=== PATIENT | male | born 1950 | race Caucasian/White ===

== ENCOUNTER 2017-07-05 07:27 | Emergency (ER) | payer OTHER ==
--- NOTE | 2017-07-05 07:32 | EDPHY ---
H & P Time Seen by Provider: 07/05/17 07:30 HPI/ROS: CHIEF COMPLAINT: Left flank pain secondary to a fall HISTORY OF PRESENT ILLNESS: The patient is a 66 y/o male arriving via EMS complaining of left flank pain secondary to a fall this morning. 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 He is having a constant pain with a severity of 5/10. He is also complaining of left elbow pain and left-sided abdominal pain that is radiating from his flank. He did not hit his head; no head or neck pain. Denies chest pain, shortness of breath, paresthesias or other pertinent symptoms. REVIEW OF SYSTEMS: Aside from elements discussed in the HPI, a comprehensive 10-point review of systems was reviewed and is negative. Past Medical/Surgical History: Denies Social History: Works for [employer], lives in [place], non-smoker. Physical Exam: General Appearance: Alert, pleasant Eyes: Pupils equal and round, no conjunctival injection ENT, Mouth: Mucous membranes moist, no facial derrick tenderness Neck: NT, FROM without pain Respiratory: Lungs are clear to auscultation Cardiovascular: Regular rate and rhythm Back: Erythema, swelling, and tenderness over the left flank Gastrointestinal: Ventral hernia. LUQ tenderness. Abdomen is soft. Neurological: A&O, nonfocal, normal gait Skin: 1 cm v-shaped laceration on left elbow Extremities: Full ROM of left elbow without pain, no other extremity pain/ swelling Psychiatric: Mood and affect normal Constitutional: Initial Vital Signs Temperature (C) 36.5 C 07/05/17 07:37 Heart Rate 60 07/05/17 07:37 Respiratory Rate 18 07/05/17 07:37 Blood Pressure 151/100 H 07/05/17 07:37 O2 Sat (%) 95 07/05/17 07:37 O2 Delivery Mode Room Air O2 (L/minute) 2 Allergies/Adverse Reactions: No Known Allergies Allergy (Unverified 07/05/17 07:42) Home Medications: Medication Instructions Recorded Hydrocodone/APAP 5/325 [Crowheart 1 - 2 tab PO Q4H PRN #10 tab 07/05/17 5/325] IBUPROFEN 07/05/17 Medical Decision Making - Diagnostics Imaging Results: Imaging Impressions Abdomen CT 07/05/17 07:39 Impression: 1. Minimally comminuted posterior left 11th and 12th rib fractures. 2. Bibasilar atelectasis. No pneumothorax or hemothorax. 3. No solid organ or bowel injury. Specifically, no splenic or left renal injury. 4. No free fluid or lumbar spine or pelvic fracture. Findings discussed with Emergency Department physician, Lizbet Lagunas, on July 05, 2017 at 9:26 a.m. Imaging: Discussed imaging studies w/ projection printer Radiologist, I viewed and interpreted images myself Procedures: The 1cm v-shaped laceration on the left elbow was anesthetized using lidocaine. The wound was irrigated, draped and explored to its base with a gloved finger. There were no deep structures involved. No foreign body palpable. The wound was repaired with 4-0 Ethilon. The wound repair was simple with 2 stitches. ED Course/Re-evaluation: The patient is a 66 y/o male arriving via EMS presenting with erythema, swelling , and tenderness his the left flank secondary to falling off of a loading dock at work. He also has a 1cm v-shaped laceration on his left elbow. 0805: The patients platelets are at 1120 0806: Reassessed patient and discussed platelet count. Will f/u with PCP. I also performed a laceration repair on his left elbow. 0922: Spoke with radiologist, he reports the patient has 2 rib fractures. 0923: Reassessed patient and discussed imaging findings. Physical exam unchanged. 15mg IV Toradol administered for left flank pain. He will need a follow up with a primary care provider regarding his thrombocytosis. Return precautions provided; patient is comfortable with this plan. Differential Diagnosis: Differential diagnosis includes though it is not limited to fracture, intracranial hemorrhage, pneumothorax, hemothorax, intra-abdominal hemorrhage. - Data Points Laboratory Results: Laboratory Results 07/05/17 07:51 07/05/17 07:51 07/05/17 07/05/17 07/05/17 07:51 07:51 07:38 WBC 9.70 10^3/uL H 10^3/uL (3.80-9.50) RBC 5.05 10^6/uL 10^6/uL (4.40-6.38) Hgb 16.1 g/dL g/dL (13.7-17.5) POC Hgb 17.3 gm/dL gm/dL (13.7-17.5) Hct 47.8 % % (40.0-51.0) POC Hct 51 % % (40-51) MCV 94.7 fL fL (81.5-99.8) MCH 31.9 pg pg (27.9-34.1) MCHC 33.7 g/dL g/dL (32.4-36.7) RDW 12.6 % % (11.5-15.2) Plt Count 1120 10^3/uL H* 10^3/uL (150-400) MPV 9.4 fL fL (8.7-11.7) Neut % (Auto) 58.4 % % (39.3-74.2) Lymph % (Auto) 28.0 % % (15.0-45.0) Lares % (Auto) 8.0 % % (4.5-13.0) Eos % (Auto) 3.6 % % (0.6-7.6) Baso % (Auto) 1.3 % % (0.3-1.7) Nucleat RBC Rel Count 0.0 % % (0.0-0.2) Absolute Neuts (auto) 5.65 10^3/uL 10^3/uL (1.70-6.50) Absolute Lymphs (auto) 2.72 10^3/uL 10^3/uL (1.00-3.00) Absolute Monos (auto) 0.78 10^3/uL 10^3/uL (0.30-0.80) Absolute Eos (auto) 0.35 10^3/uL 10^3/uL (0.03-0.40) Absolute Basos (auto) 0.13 10^3/uL H 10^3/uL (0.02-0.10) Absolute Nucleated RBC 0.00 10^3/uL 10^3/uL (0-0.01) Immature Gran % 0.7 % % (0.0-1.1) Immature Gran # 0.07 10^3/uL 10^3/uL (0.00-0.10) Platelet Estimate INCREASED H (ADEQ) Smear Review By Pending POC Sodium 139 mEq/L mEq/L (134-144) Sodium 137 mEq/L mEq/L (134-144) POC Potassium 4.1 mEq/L mEq/L (3.3-5.0) Potassium 5.5 mEq/L H mEq/L (3.5-5.2) POC Chloride 103 mEq/L mEq/L (97-110) Chloride 102 mEq/L mEq/L (97-110) Carbon Dioxide 23 mEq/l mEq/l (22-31) Anion Gap 12 mEq/L mEq/L (8-16) POC BUN 20 mg/dL mg/dL (7-23) BUN 19 mg/dL mg/dL (7-23) Creatinine 0.8 mg/dL mg/dL (0.7-1.3) POC Creatinine 0.8 mg/dL mg/dL (0.7-1.3) Estimated GFR > 60 Glucose 104 mg/dL H mg/dL (70-100) POC Glucose 110 mg/dL H mg/dL (70-100) Calcium 10.1 mg/dL mg/dL (8.5-10.4) Medications Given: Discontinued Medications Diphtheria/Tetanus/Acell Pertussis (Boostrix) 0.5 ml IM .ONCE ONE Stop: 07/05/17 07:48 Last Admin: 07/05/17 08:17 Dose: 0.5 ml Fentanyl (Sublimaze) 100 mcg IVP EDNOW ONE Stop: 07/05/17 08:26 Last Admin: 07/05/17 08:31 Dose: 100 mcg Sodium Chloride (Ns) 1,000 mls @ 0 mls/hr IV ONCE ONE; Wide Open PRN Reason: Protocol Stop: 07/05/17 08:32 Last Admin: 07/05/17 08:38 Dose: 1,000 mls Ketorolac Tromethamine (Toradol) 15 mg IVP EDNOW ONE Stop: 07/05/17 09:28 Last Admin: 07/05/17 09:31 Dose: 15 mg Point of Care Test Results: 07/05/17 07:38 POC Sodium 139 POC Potassium 4.1 POC Chloride 103 POC BUN 20 POC Creatinine 0.8 POC Glucose 110 H Departure - Departure Disposition: Home, Routine, Self-Care Clinical Impression: Laceration, Thrombocytosis Rib fracture Qualifiers: Encounter type: initial encounter Rib fracture type: multiple ribs Fracture type: closed Laterality: unspecified laterality Qualified Code(s): S22.49XA - Multiple fractures of ribs, unspecified side, initial encounter for closed fracture Condition: Good Instructions: Care For Your Stitches (ED), Laceration (ED), Rib Fracture (ED) Additional Instructions: Take Crowheart as prescribed for severe pain. Take Dulcolax as directed on the package if you need to take the Crowheart. Follow up with a primary care provider in the next week to discuss your high platelet count. Sutures out in 10 days. Return to the Emergency Department for shortness of breath, chest pain, abdominal pain, fever, redness, discharge from wound, increasing pain or other worsening of condition. Referrals: Bernardo Ramirez DO [Doctor of Osteopathy] - As per Instructions (Call to make an appointment.) Prescriptions: Hydrocodone/APAP 5/325 [Crowheart 5/325] 1 - 2 tab PO Q4H PRN #10 tab PRN Reason: Pain, Moderate Report Scribed for: Lizbet Lagunas Report Scribed by: Lacy Chang Date of Report: 07/05/17 Time of Report: 07:31 Physician Review and Approval Statement: 07/05/17 07:32 Portions of this note were transcribed by a medical collections representative. I personally performed a history, physical exam, medical decision making, and confirmed accuracy of information the transcribed note.
[2017-07-05 07:42] VITALS: RESP 18
[2017-07-05] MEDS ORDERED: TDAP ADULT 0.5 ML INJ (BOOSTRIX) IM ONE (07:47)
[2017-07-05 07:57] LABS: % IMMATURE GRANULYOCYTES 0.7 % (0.0-1.1); ABSOLUTE IMMATURE GRANULOCYTES 0.07 10^3/uL (0.00-0.10); ADD DIFF? NO; ADD MORPH? NO; ADD SCAN? NO; ATYPICAL LYMPHOCYTE FLAG 0 (0-99); FRAGMENT RBC FLAG 0 (0-99); HEMATOCRIT 47.8 % (40.0-51.0); HEMOGLOBIN 16.1 g/dL (13.7-17.5); LEFT SHIFT FLG 0 (0-99); LIPEMIA HEMOLYSIS FLAG 80 (0-99); MEAN CELL HEMOGLOBIN 31.9 pg (27.9-34.1); MEAN CELL HEMOGLOBIN CONCENTR. 33.7 g/dL (32.4-36.7); MEAN CELL VOLUME 94.7 fL (81.5-99.8); MEAN PLATELET VOLUME 9.4 fL (8.7-11.7); PLATELET CLUMPS FLAG 0 (0-99); RED BLOOD CELL COUNT 5.05 10^6/uL (4.40-6.38); RED CELL DISTRIBUTION WIDTH 12.6 % (11.5-15.2)
[2017-07-05 08:03] LABS: PLATELET COUNT 1120 10^3/uL (150-400)
[2017-07-05] MEDS ORDERED: IOPAMIDOL (ISOVUE-300) 100 ML BTL ONE (08:04)
[2017-07-05 08:18] LABS: ANION GAP 12 mEq/L (8-16); CALCIUM 10.1 mg/dL (8.5-10.4); CARBON DIOXIDE 23 mEq/l (22-31); CHLORIDE 102 mEq/L (97-110); CREATININE 0.8 mg/dL (0.7-1.3); GLOMERULAR FILTRATION RATE > 60; GLUCOSE 104 mg/dL (70-100); POTASSIUM 5.5 mEq/L (3.5-5.2); SODIUM 137 mEq/L (134-144)
[2017-07-05] MEDS ORDERED: fentaNYL 100 MCG/2 ML INJ IVP ONE (08:25)
[2017-07-05 08:26] LABS: PLATELET ESTIMATE INCREASED (ADEQ)
[2017-07-05] MEDS ORDERED: NS 1,000 ML IV ONE (08:31)
[2017-07-05] MEDS ORDERED: KETOROLAC 15 MG/1 ML SDV IVP ONE (09:27)
[2017-07-05 10:00] VITALS: BP 130/79; PULSE 85; TEMP 98.2; O2SAT 96
== END 2017-07-05 09:57 | disposition home or self-care (01) ==
LOC: EDUNIT#
PROC: 0HQEXZZ Repair Left Lower Arm Skin, External Approach (ICD-10-PCS; principal; 2017-07-05)
DX: S22.42XA Multiple fractures of ribs, left side, initial encounter for closed fracture (principal); S51.012A Laceration without foreign body of left elbow, initial encounter; D47.3 Essential (hemorrhagic) thrombocythemia; E86.9 Volume depletion, unspecified; Z23 Encounter for immunization; W01.198A Fall on same level from slipping, tripping and stumbling with subsequent striking against other object, initial encounter; Y92.62 Dock or shipyard as the place of occurrence of the external cause; Y99.0 Civilian activity done for income or pay; Y93.89 Activity, other specified
CPT/HCPCS: 82947-QW; 96374; J1885; J3010; Q9967